=== PATIENT | female | born 1995 | race Caucasian/White ===

== ENCOUNTER 2022-03-02 20:21 | Emergency (ER) | payer OTHER ==
[2022-03-02] MEDS ORDERED: IBUPROFEN 800 MG TABLET PO STA (21:07)
--- NOTE | 2022-03-02 21:40 | ED Physician Documentation ---
PD HPI URI - Stated complaint Stated Complaint: C+,FEVER,COUGH - Chief complaint Chief Complaint: Resp - History obtained from History obtained from: Patient - Additional information Additional information: Patient is a 26-year-old female with no significant past medical history presenting for evaluation of fever and tachycardia. Patient started feeling ill yesterday with fever, body aches, sore throat and nonproductive cough. She did take a home COVID test which was positive. Her is also here being evaluated with similar symptoms. She notes that when she takes Tylenol her fever reduces and her heart rate is improved but her heart rate will then increase again as her fever goes up. She last used Tylenol at noon today.She denies chest pain or difficulty breathing. She does report concerns for pneumonia as she does have a history of getting pneumonia in the past.She denies abdominal complaints or concerns for . She denies dysuria. Review of Systems Constitutional: reports: Fever Throat: reports: Sore throat Cardiac: denies: Chest pain / pressure Respiratory: reports: Cough. denies: Dyspnea GI: denies: Abdominal Pain, Vomiting : denies: Dysuria Musculoskeletal: denies: Back pain Neurologic: denies: Headache PD PAST MEDICAL HISTORY - Present Medications Home Medications: Ambulatory Orders Medication Instructions Recorded Confirmed No Known Home Medications 03/02/22 03/02/22 - Allergies Allergies/Adverse Reactions: Allergies Allergy/AdvReac Type Severity Reaction Status Date / Time No Known Drug Allergies Allergy Verified 03/02/22 20:43 PD ED PE NORMAL - General General: Alert and oriented X 3, No acute distress, Well developed/nourished - HEENT HEENT: Atraumatic, Moist mucous membranes, Pharynx benign (No oral swelling/erythema/exudate) - Neck Neck: Supple, no meningeal sign - Cardiac Cardiac: No murmur, Strong equal pulses, Other (Tachycardic, regular rhythm) - Respiratory Respiratory: No respiratory distress, Clear bilaterally - Abdomen Abdomen: Normal bowel sounds, Soft, Non tender, Non distended - Derm Derm: Warm and dry - Extremities Extremities: No edema, No calf tenderness / cord - Neuro Neuro: Normal speech Results - Vitals Vitals: Vital Signs - 24 hr 03/02/22 03/02/22 20:38 21:49 Temperature 38.3 C H 38.1 C H Heart Rate 130 H 111 H Respiratory 18 14 Rate Blood Pressure 118/72 101/65 O2 Saturation 97 98 Oxygen O2 Source Room air PD MEDICAL DECISION MAKING - ED course Complexity details: reviewed results, re-evaluated patient, d/w patient ED course: Patient is a 26-year-old female presenting for evaluation of fever, tachycardia and nonproductive cough. She has tested positive for COVID-19 at home. She is overall well-appearing with reassuring exam, clear lung sounds. Chest x-ray is clear. She is slightly tachycardic but does have a fever. She denies chest pain or difficulty breathing to suggest cardiac process or PE.Patient is able to tolerate p.o. Patient counseled on fever control as well as concerning symptoms to return for. Departure - Departure Disposition: 01 Home, Self Care Clinical Impression: COVID-19 Condition: Stable Instructions: ED Fever Control Comments: You have COVID-19. Please make sure to follow quarantine guidelines as set by the CDC. Is important to stay hydrated. Please use acetaminophen or ibuprofen as needed for fevers. At this time you do not require hospitalization. If you have any worsening symptoms please return to the ER. Discharge Date/Time: 03/02/22 21:49
[2022-03-02 21:50] VITALS: BP 101/65
--- NOTE | 2022-03-02 22:27 | XRAY Report ---
PROCEDURE: Chest 1 View X-Ray INDICATIONS: cough TECHNIQUE: One view of the chest was acquired. COMPARISON: None. FINDINGS: Surgical changes and devices: None. Lungs and pleura: No pleural effusions or pneumothorax. Lungs are clear. Mediastinum: Mediastinal contours appear normal. Heart size is normal. Bones and chest wall: No suspicious bony lesions. Overlying soft tissues appear unremarkable. IMPRESSION: 1. No acute cardiopulmonary disease. Reviewed by: Arnold Houser MD on 03/02/2022 10:25 PM PDT Approved by: Arnold Houser MD on 03/02/2022 10:25 PM PDT Station ID: [id number]
== END 2022-03-02 21:49 | disposition home or self-care (01) ==
LOC: ED 20:21
DX: U07.1 COVID-19 (principal)
CPT/HCPCS: 71045; 99282; 99283; A9270